=== PATIENT | male | born 1975 | race Caucasian/White ===

== ENCOUNTER 2016-06-13 14:06 | Emergency (ER) | payer OTHER ==
[~2016-06-13] VITALS: Ht 182.9 cm; Wt 68.0 kg
[~2016-06-13 14:06] MED LIST: AMOX875T PO; FLUT1SPR9 EACH NARE; RISP4TAB41 PO
[2016-06-13 14:22] VITALS: BP 128/80; PULSE 98; RESP 20; TEMP 98.2; O2SAT 96
[2016-06-13 14:42] LABS: AUTOMATED NEUTROPHIL # 7.6 TH/MM3 (1.8-7.7); BASOPHIL # 0.1 TH/MM3 (0-0.2); BASOPHIL % 0.8 % (0.0-2.0); EOSINOPHIL % 0.1 % (0.0-4.0); HEMATOCRIT 41.5 % (39.0-51.0); HEMO FLAGS DIFF FINAL; LYMPH % 19.6 % (9.0-44.0); MEAN CELL VOLUME 96.6 FL (80.0-100.0); MEAN CORPUSCULAR HEMOGLOBIN 33.7 PG (27.0-34.0); MEAN CORPUSCULAR HGB CONC 34.9 % (32.0-36.0); MONO % 4.9 % (0.0-8.0); NEUT % 74.6 % (16.0-70.0); PLATELET COUNT 228 TH/MM3 (150-450); RED CELL DISTRIBUTION WIDTH 13.3 % (11.6-17.2); WHITE BLOOD COUNT 10.2 TH/MM3 (4.0-11.0)
--- NOTE | 2016-06-13 14:48 | PD ---
HPI Chief Complaint: Psychiatric Symptoms Time Seen by Provider: 14:13 Travel History International Travel<30 days: No Contact w/Intl Traveler<30days: No Traveled to known affect area: No History of Present Illness HPI This patient is brought in as a police Patel act. This patient has history of schizoaffective disorder. He takes risperidone and reports compliance. He is also admittedly an alcohol abuser and drinks most days. He says he had one beer today. He called 911 and requested to be Patel acted. He says he is hearing voices and he wasn't sure what sort of acts he might commit. He denies feeling suicidal however. Symptoms severity is moderate. Duration 3 days. No alleviating factors. PFSH Past Medical History Hx Anticoagulant Therapy: No Bipolar Disorder: Yes (SCHIZOAFFECTIVE) Anxiety: Yes Depression: Yes Cardiovascular Problems: Yes (TACHYCARDIA) Chemotherapy: No Cerebrovascular Accident: No Diabetes: No Diminished Hearing: No Psychiatric: Yes (SCHIZOAFFECTIVE) Respiratory: No Seizures: Yes (2007 SECONDARY ALCOHOL WITHDRAWL) Past Surgical History Abdominal Surgery: Yes (HERNIA REPAIR) Social History Alcohol Use: Yes (CASE OF BEER DAILY) Tobacco Use: Yes (1 PPD) Substance Use: No Allergies-Medications (Allergen,Severity, Reaction): Coded Allergies: Bee Sting (Verified Allergy, Intermediate, HIVES, 12/01/15) Reported Meds & Prescriptions Reported Meds & Active Scripts Active Flonase Allergy Relief (Fluticasone Propionate (Nasal)) 50 Mcg/Act Spr 2 [place] EACH NARE DAILY Trimox 875 Mg Tab (Amoxicillin) 875 Mg Tab 875 Mg PO Q12 Reported Risperdal (Risperidone) 4 Mg Tab 4 Mg PO DAILY Review of Systems General / Constitutional: No: Fever Eyes: No: Visual changes HENT: No: Headaches Cardiovascular: No: Chest Pain or Discomfort Respiratory: No: Shortness of Breath Gastrointestinal: No: Abdominal Pain Genitourinary: No: Dysuria Musculoskeletal: No: Pain Skin: No Rash Neurologic: No: Weakness Psychiatric: Positive: Disorder of Thought, Substance Abuse, No: Depression Endocrine: No: Polydipsia Hematologic/Lymphatic: No: Easy Bruising Physical Exam Narrative GENERAL: Well-nourished, well-developed patient in no apparent distress. SKIN: Warm and dry. HEAD: Atraumatic. Normocephalic. EYES: Pupils equal and round. No scleral icterus. No injection or drainage. ENT: No nasal bleeding or discharge. Mucous membranes pink and moist. NECK: Trachea midline. No JVD. CARDIOVASCULAR: Regular rate and rhythm. No murmur appreciated. RESPIRATORY: No accessory muscle use. Clear to auscultation. Breath sounds equal bilaterally. GASTROINTESTINAL: Abdomen soft, non-tender, nondistended. Hepatic and splenic margins not palpable. MUSCULOSKELETAL: No obvious deformities. No clubbing. No cyanosis. No edema. NEUROLOGICAL: Awake and alert. No obvious cranial nerve deficits. Motor grossly within normal limits. Normal speech. PSYCHIATRIC: Appropriate mood and affect; insight and judgment reduced. Data Data Last Documented VS Vital Signs Date Time Temp Pulse Resp B/P Pulse Ox O2 Delivery O2 Flow Rate FiO2 06/13/16 14:24 98 20 06/13/16 14:22 98.2 128/80 96 Orders Complete Blood Count With Diff (06/13/16 14:18) Basic Metabolic Panel (Bmp) (06/13/16 14:18) Psych Screen (06/13/16 14:18) Drug Screen, Random Urine (06/13/16 14:18) Alcohol (Ethanol) (06/13/16 14:18) Labs Laboratory Tests Test 06/13/16 06/13/16 14:28 15:45 White Blood Count 10.2 TH/MM3 Red Blood Count 4.30 MIL/MM3 Hemoglobin 14.5 GM/DL Hematocrit 41.5 % Mean Corpuscular Volume 96.6 FL Mean Corpuscular Hemoglobin 33.7 PG Mean Corpuscular Hemoglobin 34.9 % Concent Red Cell Distribution Width 13.3 % Platelet Count 228 TH/MM3 Mean Platelet Volume 7.8 FL Neutrophils (%) (Auto) 74.6 % Lymphocytes (%) (Auto) 19.6 % Monocytes (%) (Auto) 4.9 % Eosinophils (%) (Auto) 0.1 % Basophils (%) (Auto) 0.8 % Neutrophils # (Auto) 7.6 TH/MM3 Lymphocytes # (Auto) 2.0 TH/MM3 Monocytes # (Auto) 0.5 TH/MM3 Eosinophils # (Auto) 0.0 TH/MM3 Basophils # (Auto) 0.1 TH/MM3 CBC Comment DIFF FINAL Differential Comment Sodium Level 138 MEQ/L Potassium Level 4.3 MEQ/L Chloride Level 102 MEQ/L Carbon Dioxide Level 22.8 MEQ/L Anion Gap 13 MEQ/L Blood Urea Nitrogen 8 MG/DL Creatinine 1.18 MG/DL Estimat Glomerular Filtration 68 ML/MIN Rate Random Glucose 74 MG/DL Calcium Level 9.1 MG/DL Ethyl Alcohol Level 28 MG/DL Urine Opiates Screen NEG Urine Barbiturates Screen NEG Urine Amphetamines Screen NEG Urine Benzodiazepines Screen NEG Urine Cocaine Screen NEG Urine Cannabinoids Screen NEG MDM Medical Decision Making Medical Screen Exam Complete: Yes Emergency Medical Condition: Yes Medical Record Reviewed: Yes Differential Diagnosis Schizoaffective exacerbation, bipolar, alcohol intoxication Narrative Course I have reviewed the patient's electronic medical record. Patient's been seen here multiple times for schizoaffective disorder CBC is normal Metabolic profile is normal Alcohol level is 28 Toxicology screen is negative Patient presents under Patel act and requests psychiatric evaluation. I've ordered psychiatric screening. Patient is is medically stable as can be made. Disposition will be per psychiatry after screening Diagnosis Primary Impression: Schizoaffective disorder Qualified Code: F25.9 - Schizoaffective disorder, unspecified type Additional Impressions: Alcoholism Auditory hallucination Holden Pride MD Jun 13, 2016 14:48
[2016-06-13 14:55] LABS: BICARBONATE 22.8 MEQ/L (21.0-32.0); POTASSIUM 4.3 MEQ/L (3.5-5.1)
[2016-06-13 16:01] LABS: AMPHETAMINE, URINE NEG (NEG); BARBITURATES, URINE NEG (NEG); COCAINE, URINE NEG (NEG)
[2016-06-13 22:11] VITALS: BP 113/79; PULSE 89; RESP 18; O2SAT 97
[2016-06-14 02:04] VITALS: BP 110/65; PULSE 66; RESP 18; O2SAT 95
[2016-06-14 06:29] VITALS: BP 91/55; PULSE 71; RESP 18; O2SAT 95
--- NOTE | 2016-06-14 10:13 | MB ---
cc: ELMER BOJORQUEZ DATE OF CONSULTATION: 06/14/2016 PHYSICIAN REQUESTING CONSULTATION Emergency Department REASON FOR CONSULTATION Patel Act. HISTORY OF PRESENT ILLNESS Mr. Jacobsen is a 40-year-old male with a reported history of schizoaffective disorder who presents under Patel Act from the [place] [employer] alleging "Mr. Jacobsen called 911 and wanting to be Patel Acted due to being schizophrenic and he is afraid he might do something." Reviewing the electronic medical record, I see no prior psychiatric contact within our system. Alcohol level on presentation here was 28. The patient is seen and examined. Chart reviewed. Case discussed with nurse in the [facility]. The patient has been no behavioral problem in the J-[facility] and there has been no evidence of any suicidality or homicidality while under observation in the J-[facility]. On my examination this morning, the patient is clinically sober. He is calm and pleasant and quite a knowledgeable historian about his mental illness. He says that he has a lengthy history of schizoaffective disorder, well-managed with Risperdal and he follows with the [facility]. He says that he also has an alcohol use history but had been sober for the last 4 months or so. He says that he had a slip up and drank a little bit last night and began to experience some vague hallucinations. He had described auditory hallucinations to the ED provider, but to me he describes more of what sounds like tactile hallucinations, feeling like someone was brushing up against him. In any event, the patient reports that this hallucinatory material has completely resolved this morning. He denies any audiovisual or tactile hallucinations at this time. No command auditory hallucinations. I can elicit no delusional beliefs. Mood is good and there is no evidence of any depressive or hypomanic / manic process. The remainder of the psychiatric ROS is negative. The patient is requesting discharge from the psychiatric emergency room this morning. PAST PSYCHIATRIC HISTORY The patient reports a history of schizoaffective disorder. He follows with a tele psychiatrist through the [place]. He takes Risperdal 4 mg daily. His most recent psychiatric hospitalization was in 2007 in [place] following an overdose after he went off of his Zyprexa at the time. That is his only suicide attempt. FAMILY HISTORY The patient denies a family history of serious mental illness. No reported family history of suicide. CHEMICAL DEPENDENCY HISTORY The patient reports that he used to be a heavy drinker but has been sober for the last 4 months. He does attend AA meetings. He had a slip up yesterday but is committed to resuming AA meetings and sobriety at this time. He denies any other substance use. SOCIAL HISTORY The patient reports that he lives alone in an apartment. He is hoping to get a pet cat. He is also looking forward to getting a new apartment because he says several of his neighbors are crack heads. He says that the [facility] is assisting him with this. He is college educated. He collects Disability and is also working on getting a VA pension. He has had girlfriends in the past but has never been . He has no children. He does have a history of DUIs but denies any other legal issues. Denies a history of violent crime. Denies any access to guns or firearms. Believes in a higher power. 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 He did see some combat but denies any PTSD symptoms. PAST MEDICAL HISTORY No reported medical issues. REVIEW OF SYSTEMS No reported headache, vision or hearing changes, chest pain, shortness of breath, bowel or bladder issues. No other physical complaints. MENTAL STATUS EXAMINATION The patient is in a hospital gown. He is fairly well-groomed and maintaining basic hygiene. He is awake, alert and oriented x3. No evidence of delirium. No abnormal motor movements noted. Speech is within normal limits for rate, tone and volume. Language and fund of knowledge seem average. Mood is good and affect is euthymic, full and reactive. Thought process is linear. No loosening of associations. No evident delusions. Denies audiovisual hallucinations at this time. Denies suicidal or homicidal ideation. Insight and judgment are fair to good. ASSESSMENT AND PLAN 1. Schizoaffective disorder, presently stable, F25.0. 2. Alcohol intoxication, F10.120, now resolved. This is a 40-year-old male with a psychiatric history as detailed above who presents under a Patel Act. The patient called the police to have himself Patel Acted because he was worried that he had slipped up and consumed alcohol and that this had reacted badly with his psychotropic medications. This morning, the patient is clinically sober and has returned to his psychiatric baseline. He denies any audiovisual hallucinations. Denies any suicidal or homicidal ideation. He appears to be attending to his basic needs. I can detect no other unstable mood, anxiety or psychotic disorder in this patient at this time. Synthesizing the above information, I drywaller the patient does not presently meet Patel Act criteria. I have lifted the Patel Act. The patient is requesting discharge from the emergency room today. He is agreeable to following up with his VA provider. He has an adequate supply of his Risperdal medication and plans to continue taking this. He plans to redouble his efforts with Alcoholics Anonymous to maintain sobriety from alcohol. I have counseled the patient regarding warning signs for need to return to the psychiatric emergency room as part of a general safety plan. The patient is otherwise psychiatrically cleared for discharge from the ED. Case discussed with RN. Thank you very much for this consultation. Elmer FERREIRA /8:26 AM /9:59 AM ABEL
== END 2016-06-14 09:29 | disposition home or self-care (01) ==
LOC: NEPE 14:06 → NEPJ 06-14 09:29
DX: F25.9 Schizoaffective disorder, unspecified (principal); R00.0 Tachycardia, unspecified; F10.20 Alcohol dependence, uncomplicated; F17.210 Nicotine dependence, cigarettes, uncomplicated; Y90.1 Blood alcohol level of 20-39 mg/100 ml
CPT/HCPCS: 80048; 80307; 85025; 99283

== ENCOUNTER 2017-08-05 16:27 | Emergency (ER) | payer OTHER ==
[~2017-08-05] VITALS: Ht 177.8 cm; Wt 75.0 kg
[~2017-08-05 16:27] MED LIST changes: -AMOX875T PO
[2017-08-05 16:32] VITALS: BP 133/91; PULSE 116; RESP 20; TEMP 98.1; O2SAT 95
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
[2017-08-05 17:01] LABS: AUTOMATED NEUTROPHIL # 4.3 TH/MM3 (1.8-7.7); BASOPHIL # 0.1 TH/MM3 (0-0.2); BASOPHIL % 1.1 % (0.0-2.0); EOSINOPHIL % 0.7 % (0.0-4.0); HEMOGLOBIN 14.5 GM/DL (13.0-17.0); LYMPH % 32.6 % (9.0-44.0); LYMPHOCYTE # 2.4 TH/MM3 (1.0-4.8); MEAN CELL VOLUME 97.3 FL (80.0-100.0); MEAN CORPUSCULAR HEMOGLOBIN 33.7 PG (27.0-34.0); MEAN CORPUSCULAR HGB CONC 34.6 % (32.0-36.0); MEAN PLATELET VOLUME 7.3 FL (7.0-11.0); MONO % 7.3 % (0.0-8.0); MONOCYTE # 0.5 TH/MM3 (0-0.9); NEUT % 58.3 % (16.0-70.0); PLATELET COUNT 230 TH/MM3 (150-450); RED BLOOD COUNT 4.32 MIL/MM3 (4.50-5.90); RED CELL DISTRIBUTION WIDTH 14.1 % (11.6-17.2); WHITE BLOOD COUNT 7.4 TH/MM3 (4.0-11.0)
[2017-08-05 17:32] LABS: AST (GOT) 40 U/L (15-37); BICARBONATE 27.9 MEQ/L (21.0-32.0); BLOOD UREA NITROGEN 6 MG/DL (7-18); CALCIUM 8.9 MG/DL (8.5-10.1); CHLORIDE 98 MEQ/L (98-107); CREATININE 0.91 MG/DL (0.60-1.30); GLOMERULAR FILTRATION RATE 92 ML/MIN (>89); GLUCOSE,RANDOM 107 MG/DL (74-106); SODIUM (NA) 136 MEQ/L (136-145)
[2017-08-05 17:33] LABS: ALT (GPT) 29 U/L (12-78)
[2017-08-05 17:42] LABS: ALKALINE PHOSPHATASE 109 U/L (45-117); TOTAL BILIRUBIN ADULT 0.2 MG/DL (0.2-1.0); TOTAL PROTEIN 8.7 GM/DL (6.4-8.2)
[2017-08-05] MEDS ORDERED: ONDANSETRON ODT 4 MG TAB PO PRN (18:00)
[2017-08-05] MEDS ORDERED: FLUMAZENIL 0.5 MG/5 ML VIAL IV PUSH PRN (18:00)
[2017-08-05] MEDS ORDERED: LORazepam 2 MG/ML VIAL IV PUSH PRN ×4 (18:00)
[2017-08-05] MEDS ORDERED: ACETAMINOPHEN 325 MG TAB PO PRN (18:00)
[2017-08-05] MEDS ORDERED: LORazepam 2 MG TAB PO PRN (18:00)
[2017-08-05] MEDS ORDERED: LORazepam 1 MG TAB PO PRN (18:00)
[2017-08-05 18:52] VITALS: BP 127/78; PULSE 94; RESP 20; TEMP 98.2; O2SAT 96
[2017-08-06 05:27] VITALS: BP 114/88; PULSE 102; RESP 18; O2SAT 95
[2017-08-06 07:38] VITALS: BP 133/82; PULSE 86; RESP 16; TEMP 98.7; O2SAT 95
--- NOTE | 2017-08-06 09:14 | PD ---
Physical Exam Date Seen by Provider: August 06, 2017 Time Seen by Provider: 09:13 Narrative 41-year-old male previously Patel acted and medically cleared for psychiatric evaluation, has been seen by the psychiatrist and deemed to be psychiatrically stable for discharge at this time. Patient remains medically stable for discharge. Follow-up will be based on psychiatric note. Data Data Last Documented VS Vital Signs Date Time Temp Pulse Resp B/P (MAP) Pulse Ox O2 Delivery O2 Flow Rate FiO2 08/06/17 07:38 98.7 86 16 133/82 (99) 95 Room Air Orders Orders Complete Blood Count With Diff (08/05/17 16:36) Comprehensive Metabolic Panel (08/05/17 16:36) Thyroid Stimulating Hormone (08/05/17 16:36) Psych Screen (08/05/17 16:36) Drug Screen, Random Urine (08/05/17 16:36) Alcohol (Ethanol) (08/05/17 16:36) Diet Regular Basic (08/05/17 Dinner) Alcohol Withdrawal Asmt-Ciwa ONCE (08/05/17 17:51) Ondansetron Odt (Zofran Odt) (08/05/17 18:00) Acetaminophen (Tylenol) (08/05/17 18:00) Flumazenil Inj (Romazicon Inj) (08/05/17 18:00) Lorazepam (Ativan) (08/05/17 18:00) Lorazepam Inj (Ativan Inj) (08/05/17 18:00) Lorazepam (Ativan) (08/05/17 18:00) Lorazepam Inj (Ativan Inj) (08/05/17 18:00) Lorazepam Inj (Ativan Inj) (08/05/17 18:00) Lorazepam Inj (Ativan Inj) (08/05/17 18:00) Diet Regular Basic (08/06/17 Breakfast) Labs Laboratory Tests Test 08/05/17 16:41 08/06/17 08:20 White Blood Count 7.4 TH/MM3 Red Blood Count 4.32 MIL/MM3 Hemoglobin 14.5 GM/DL Hematocrit 42.0 % Mean Corpuscular Volume 97.3 FL Mean Corpuscular Hemoglobin 33.7 PG Mean Corpuscular Hemoglobin Concent 34.6 % Red Cell Distribution Width 14.1 % Platelet Count 230 TH/MM3 Mean Platelet Volume 7.3 FL Neutrophils (%) (Auto) 58.3 % Lymphocytes (%) (Auto) 32.6 % Monocytes (%) (Auto) 7.3 % Eosinophils (%) (Auto) 0.7 % Basophils (%) (Auto) 1.1 % Neutrophils # (Auto) 4.3 TH/MM3 Lymphocytes # (Auto) 2.4 TH/MM3 Monocytes # (Auto) 0.5 TH/MM3 Eosinophils # (Auto) 0.0 TH/MM3 Basophils # (Auto) 0.1 TH/MM3 CBC Comment DIFF FINAL Differential Comment Blood Urea Nitrogen 6 MG/DL Creatinine 0.91 MG/DL Random Glucose 107 MG/DL Total Protein 8.7 GM/DL Albumin 4.0 GM/DL Calcium Level 8.9 MG/DL Alkaline Phosphatase 109 U/L Aspartate Amino Transf (AST/SGOT) 40 U/L Alanine Aminotransferase (ALT/SGPT) 29 U/L Total Bilirubin 0.2 MG/DL Sodium Level 136 MEQ/L Potassium Level 3.7 MEQ/L Chloride Level 98 MEQ/L Carbon Dioxide Level 27.9 MEQ/L Anion Gap 10 MEQ/L Estimat Glomerular Filtration Rate 92 ML/MIN Thyroid Stimulating Hormone 3rd Gen 4.220 uIU/ML Ethyl Alcohol Level 250 MG/DL Urine Opiates Screen NEG Urine Barbiturates Screen NEG Urine Amphetamines Screen NEG Urine Benzodiazepines Screen NEG Urine Cocaine Screen NEG Urine Cannabinoids Screen NEG MDM Medical Record Reviewed: Yes Supervised Visit with VICTORINO: Yes Narrative Course 41-year-old male previously Patel acted and medically cleared for psychiatric evaluation, has been seen by the psychiatrist and deemed to be psychiatrically stable for discharge at this time. Patient remains medically stable for discharge. Follow-up will be based on psychiatric note. Diagnosis Primary Impression: Alcoholism Additional Impression: Medical clearance for psychiatric admission Referrals: [facility] Patient Instructions: General Instructions Disposition: DISCHARGE HOME Condition: Stable Brent Aguilar August 06, 2017 09:14
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
== END 2017-08-06 10:29 | disposition home or self-care (01) ==
LOC: NEPJ 16:27
DX: F25.9 Schizoaffective disorder, unspecified (principal); F10.229 Alcohol dependence with intoxication, unspecified; F17.200 Nicotine dependence, unspecified, uncomplicated; Y90.8 Blood alcohol level of 240 mg/100 ml or more; Z79.899 Other long term (current) drug therapy
CPT/HCPCS: 80053; 80307; 84443; 85025; 99283

== ENCOUNTER 2018-05-08 15:54 | Inpatient (IN) ==
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
--- NOTE | 2018-05-08 18:57 | ED ---
HPI - Psych - General Source: patient, old records reviewed, police Mode of arrival: other (police) Limitations: no limitations - History of Present Illness Onset (ago): hour(s) Duration: changing over time History of same: Yes Relieving factors: none Exacerbating factors: alcohol Context: significant life stressor Associated symptoms: denies other symptoms Treatments prior to arrival: none - General Chief Complaint: Psychiatric Symptoms Stated Complaint: nolan Sheth Time Seen by Provider: 05/08/18 16:35 - History of Present Illness HPI Narrative: This patient is a 42 years old [facility] [employer] male who was brought into the ED on a Patel act initiated by a psychologist at the [facility]. The Patel act stated that the patient had been abusing alcohol heavily and experiencing hallucinations. The patient came into the unit became very anxious and is faced flushed and heavily tanned by the sun. The staff stated that patient was living in a supervised housing for veterans and he had been missing for 2 weeks. The patient is alert and orientated x3 and he gave a report of him arguing with his case briefer at the [place] clinic and that is what caused him to be Patel acted. His speech is fluent rational with no evidence of thought process disorder. Patient denies any auditory hallucinations or suicidal thoughts. Initially he appears anxious but settled down soon after on his own. The patient was last treated at this hospital in July 2017. He has a diagnosis of schizoaffective disorder and alcohol dependence. He denies any abuse of illicit drugs but confessed to be drinking alcohol daily. Evidence of alcohol withdrawal symptoms are seen and patient denies the same. He denies chest pain or any other somatic symptoms. (Saurabh Rubi) - Related Data Home Medications Medication Instructions Recorded Confirmed Risperdal 4 mg PO DAILY 05/06/18 05/08/18 Allergies Allergy/AdvReac Type Severity Reaction Status Date / Time olanzapine Allergy Severe Restlessnes Unverified 05/08/18 16:12 s bee venom protein (honey bee) Allergy Intermediate HIVES Unverified 05/08/18 16: 12 PMFSH - History History Provided By: Patient - Medical History Medical History: Medical History (Last Reviewed 05/08/18 @ 17:13 by BERNICE Merritt) Schizoaffective disorder - Surgical History Surgical History: Surgical History (Last Reviewed 05/08/18 @ 17:13 by BERNICE Merritt) History of hernia surgery - Tobacco History Second Hand Smoke Exposure: Yes Tobacco Use In Past 30 Days: Yes Smoking Status: Current every day smoker Tobacco Type: Cigarettes - Alcohol History How Often Do You Have a Drink Containing Alcohol: 2 to 3 times a week - Substance Use History Substance History: Active Abuse - Substance Use Type Alcohol Status: Active - Travel History Recent Travel in the [place] Within the Last 8 Weeks: No Recent Travel Out of the Country Within the Last 8 Weeks: No - Immunization History Tetanus Immunization: Unsure Psychiatric History - Psychiatric History Psychiatric Treatment History: History of Psychiatric Treatment History of Inpatient Treatment: Yes Firearms in Home: No - Psychiatric History Patient has a long history of chronic alcohol dependency and schizoaffective disorder. Pain to have been treated at the [place] outpatient clinic and he was last treated at this hospital in July 2017. (Saurabh Rubi) - Legal History Denies (Saurabh Rubi) - Family Psychiatric History Denies any family history of mental disorder (Saurabh Rubi) Physical Exam - General Limitations: no limitations Mental Status Examination Appearance: Appropriate Consciousness: Alert Orientation: x4 Motor Activity: Normal gait Speech: Unremarkable Language: Adequate Fund of Knowledge: Adequate Attention and Concentration: Easily distracted Memory: Unremarkable Mood: Appropriate, Anxious Affect: Appropriate, Euthymic, Anxious Thought Process & Associations: Intact, Logical, Goal directed Thought Content: Appropriate Hallucination Type: None Delusion Type: None Suicidal Ideation: No Suicidal Plan: No Suicidal Intention: No Homicidal Ideation: No Homicidal Plan: No Homicidal Intention: No Insight: Adequate Judgment: Adequate Initial Documented Vital Signs Temperature 98.9 F 05/08/18 16:10 Pulse Rate 99 H 05/08/18 16:10 Respiratory Rate 18 05/08/18 16:10 Blood Pressure 126/96 H 05/08/18 16:10 Pulse Oximetry 99 05/08/18 16:10 Last Documented Vital Signs Temperature 98.3 F 05/08/18 18:41 Pulse Rate 93 H 05/08/18 18:41 Respiratory Rate 16 05/08/18 18:41 Blood Pressure 123/85 05/08/18 18:41 Pulse Oximetry 98 05/08/18 18:41 MDM - Psych - Diagnosis (1) Schizoaffective disorder Code(s): F25.9 - Schizoaffective disorder, unspecified Status: Acute (2) Alcohol dependence Code(s): F10.20 - Alcohol dependence, uncomplicated Status: Acute - MDM Narrative Medical decision making narrative: This [employer] has a history of chronic alcohol dependency and poor compliance with treatment. His case briefer at the [place] is trying to get him placed into the [facility] psychiatric unit when he is discharged from this hospital. The plan is to admit the patient to the [facility] unit for inpatient stabilization then to facilitate a transfer to the [facility]. ( Saurabh Rubi)
[2018-05-08] MEDS ORDERED: Aluminum/Magnesium/Simethacone Susp 30 ML UDC PO PRN (19:00)
[2018-05-08] MEDS ORDERED: LORazepam 1 MG Tablet PO PRN (19:04)
--- NOTE | 2018-05-09 16:11 | P.HPPSY ---
Provisional Diagnosis Admission Date: May 08, 2018 19:10 [place] I.: schizoaffective disorder, bipolar type alcohol abuse Competence Certification of Person's Competence To Provide Express and Informed Consent I have personally examined Romeo Jacobsen, a person being served at [facility] on, May 09, 2018 1608. Express and informed consent means consent voluntarily given in writing, by a competent person, after sufficient explanation and disclosure of the subject matter involved to enable the person to make a knowing and willful decision without any element of force, fraud, deceit, duress, or other form of constraint or coercion. This person is 18 years of age or older, is not now known to be incompetent to consent to treatment with a guardian advocate, and does not have a health care surrogate or proxy currently making medical treatment decisions. I have found this person to be one of the following: [] Competent to provide express and informed consent, as defined above, for voluntary admission to this facility and is competent to provide express and informed consent for treatment. He/she has the consistent capacity to make well reasoned, willful, and knowing decisions concerning his or her medical or mental health treatment. The person fully and consistently understands the purpose of the admission for examination/placement and is fully capable of personally exercising all rights assured [place] [] Incompetent to provide express and informed consent to voluntary admission, and this is incompetent to provide express and informed consent to treatment. The person must be transferred to involuntary status and a petition for a guardian advocate filed with the Circuit Court. [] Refusing to provide express and informed consent to voluntary admission but is competent to provide express and informed consent for treatment. The person must be discharged or transferred to involuntary status. Form shall be completed within 24 hours of a person's arrival at the receiving facility and filed in the clinical record of each person: 1. Admitted on a voluntary basis 2. Permitted to provide express and informed consent to his/her own treatment 3. Allowed to transfer from involuntary to voluntary status 4. Prior to permitting a person to consent to his or her own treatment after having been previously found incompetent to consent to treatment. History of Present Illness Capacity: Has capacity Chief Complaint: "the social workers are ruining my life" History of Present Illness: Pt seen and discussed with staff. Chart reviewed. Pt is a [id number] with a hx of schizoaffective d/o bipolar type who was admitted to [facility] on a BA after he went to [place] and c/o of bugs crawling on him and allegedly became agitated. He was missing from [place] housing for two weeks and heavily abusing alcohol. He states he left apartment because there are crackheads in the neighborhood and he has been hanging out with homeless people drinking beer. He believes [place] SW are conspiring against him and has been paranoid and labile on he unit. Speech is pressured and TP is disorganized and tangential. CIWA has been 0 and vital signs are stable. Pt reports that he stopped taking risperdal 4mg po Qdaily 4 months ago to see what would happen. He reports that previous attempts at ceasing risperdal have resulted in him becoming psychotic within a month. 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 Pt states that he has been drinking b/c he likes it and "just because I yelled a bit" the SW had him placed under a BA. He is quite grandiose and tangential. He denies any hx of side effects or EPS with Risperdal. He states that he is agreeable to take medication and wishes to have substance abuse treatment. "Its time I stop drinking." No SI/HI. He is easily agitated but calms with verbal intervention. He is on CIWA for alcohol abuse and has been scoring zero so far. He denies any hx of previous DTs or withdrawal. - Inpatient Certification I certify that the inpatient services were ordered in accordance with Medicare regulations governing the order. This includes certification that hospital inpatient services are reasonable and necessary and in the case of services not specified as inpatient-only under 42 CFR 419.22(n), that they are appropriately provided as inpatient services in accordance to with the 2-midnight benchmark under 43 CFR 412.3(e) I certify that inpatient psychiatric hospital services are medically necessary. Evaluation and treatment and/or diagnostic testing are expected to improve the patient's condition. The patient needs on a daily basis, active treatment furnished directly by or requiring the supervision of inpatient psychiatric facility personnel. Estimated Total Length of Stay (Days): 7 Plans for Post Hospital Care: Home Review of Systems Psychiatric: Reports abnormal sleep pattern, Reports mood swings, Reports paranoia PMFSH - History History Provided By: Patient - Medical History Medical History: Medical History (Last Reviewed 05/09/18 @ 19:10 by Daiana Ruiz MD) Schizoaffective disorder - Surgical History Surgical History: Surgical History (Last Reviewed 05/09/18 @ 19:10 by Daiana Ruiz MD) History of hernia surgery - Family History Family History: Family History (Last Updated 05/09/18 @ 19:11 by Daiana Ruiz MD) Other No pertinent family history - Tobacco History Second Hand Smoke Exposure: Yes Tobacco Use In Past 30 Days: Yes Smoking Status: Current every day smoker Tobacco Type: Cigarettes - Alcohol History How Often Do You Have a Drink Containing Alcohol: 2 to 3 times a week - Substance Use History Substance History: Active Abuse - Substance Use Type Alcohol Status: Active Route Used: By Mouth Reason for Use: Calm Down - Travel History Recent Travel in the [place] Within the Last 8 Weeks: No Recent Travel Out of the Country Within the Last 8 Weeks: No - Immunization History Tetanus Immunization: Unsure Hx Influenza Vaccine This Season: No Quality Measures - Psychiatric History Psychological trauma history: reports experienced trauma in Violence risk to others in the last 6 months: denies Violence risk to self in the last 6 months: denies - Substance Abuse History Drug or alcohol use in the past 12 months: Pt reports heavy drinking of beer for past 2 weeks. Hx of DUIs and incarceration for felony DUI - Patient Strengths Patient's strengths (minimum of 2): verbal, has access to healthcare, wants substance abuse treatment Medications and Allergies Active Medications: Active Medications Al Hydrox/Mg Hydrox/Simethicone (Mag-Al Plus Susp Liq) 30 ml PO Q6H PRN PRN Reason: DYSPEPSIA Lorazepam (Ativan) 1 mg PO Q4H PRN PRN Reason: for CIWA 8-10 Lorazepam (Ativan) 2 mg PO Q2H PRN PRN Reason: for CIWA 11-14 Allergies Allergy/AdvReac Type Severity Reaction Status Date / Time olanzapine Allergy Severe Restlessnes Unverified 05/08/18 16:12 s bee venom protein (honey bee) Allergy Intermediate HIVES Unverified 05/08/18 16: 12 Home Medications Medication Instructions Recorded Confirmed Type Risperdal 4 mg PO DAILY 05/06/18 05/08/18 History Exam Vital signs: Vital Signs 05/08/18 16:10 05/08/18 18:41 05/08/18 20:20 Temperature 98.9 F 98.3 F 98.0 F Pulse Rate 99 H 93 H 90 Respiratory Rate 18 16 20 Blood Pressure 126/96 H 123/85 116/77 Pulse Oximetry 99 98 95 05/09/18 05:59 Temperature 98.1 F Pulse Rate 75 Respiratory Rate 18 Blood Pressure 102/66 Pulse Oximetry 95 Intake & Output 05/08/18 05/09/18 05/09/18 18:59 06:59 18:59 Weight 64.864 kg 63.1 kg Other: Weight On Admission 63.1 kg Mental Status Examination Appearance: Appropriate Consciousness: Alert Orientation: x4 Motor Activity: Normal gait Speech: Pressured Language: Adequate Fund of Knowledge: Adequate Attention and Concentration: Easily distracted Memory: Unremarkable Mood: Manic Affect: Labile Thought Process & Associations: Tangential Thought Content: Other (grandiose) Hallucination Type: None Delusion Type: Paranoid, Other (grandiose) Suicidal Ideation: No Suicidal Plan: No Suicidal Intention: No Homicidal Ideation: No Homicidal Plan: No Homicidal Intention: No Insight: Fair Judgment: Impulsive Assessment and Plan - Assessment (1) Schizoaffective disorder Code(s): F25.9 - Schizoaffective disorder, unspecified Status: Acute (2) Alcohol abuse, uncomplicated Code(s): F10.10 - Alcohol abuse, uncomplicated Status: Acute - Plan Plan: Estimated LOS: [] days Restart risperdal for psychosis and pattie. Pt has capacity and is agreeable to take medications but not willing to sign in voluntarily. Will start petition for involuntary hospitalization. Continue CIWA. Pt would benefit from substance abuse treatment. Justification for Continued Inpatient Stay: psychosis (1) Schizoaffective disorder Qualifiers: Schizoaffective disorder type: bipolar Qualified Code(s): F25.0 - Schizoaffective disorder, bipolar type
--- NOTE | 2018-05-10 14:40 | P.PNPSY ---
Subjective Chief Complaint: "the social workers are ruining my life" Remarks: Patient seen for follow-up, chart reviewed, patient discussed with nursing staff ; we reviewed the patient's mood, thoughts, and behaviors from overnight and this morning. Nurse reports the patient slept 8 hours overnight and his CIWA score was 1 this morning. He is described as calm cooperative but can be easily frustrated but responds well to redirection. Patient was seen at bedside where he was sleeping after breakfast. He was easy to awaken. His thought processes were significant for tangential thoughts and some grandiose descriptions of his abilities. He reports good control of his mood and behavior in the past with Risperdal 4 mg a day and he would like to continue titrating the dose. He denies any current auditory or visual hallucinations. Denies any suicidal or homicidal ideations. Mental Status Examination Appearance: Appropriate Consciousness: Alert Orientation: x4 Motor Activity: Normal gait Speech: Pressured Language: Adequate Fund of Knowledge: Adequate Attention and Concentration: Easily distracted Memory: Unremarkable Mood: Manic Affect: Labile Thought Process & Associations: Tangential Thought Content: Other (grandiose) Hallucination Type: None Delusion Type: Paranoid, Other (grandiose) Suicidal Ideation: No Suicidal Plan: No Suicidal Intention: No Homicidal Ideation: No Homicidal Plan: No Homicidal Intention: No Insight: Fair Judgment: Impulsive Assessment and Plan - Assessment (1) Schizoaffective disorder Code(s): F25.9 - Schizoaffective disorder, unspecified Status: Acute (2) Alcohol abuse, uncomplicated Code(s): F10.10 - Alcohol abuse, uncomplicated Status: Acute - Plan Plan: May 10, 2018: Good response to treatment as the patient is not having any symptoms of alcohol withdrawal and he is calm and cooperative with care. He continues to demonstrate a disorganized thought processes consistent with a bipolar disorder which he believes was very well controlled with Risperdal 4 mg/ day therefore dose will be increased to 1.5 mg twice a day for tomorrow. Justification for Continued Inpatient Stay: Patient remains an elevated risk for self-harm by self neglect and will require further inpatient stabilization and preparation of a safe discharge plan. Moving patient to a less restrictive environment at this time may result in decompensation. (1) Schizoaffective disorder Qualifiers: Schizoaffective disorder type: bipolar Qualified Code(s): F25.0 - Schizoaffective disorder, bipolar type
[2018-05-11 05:56] VITALS: O2SAT 97
--- NOTE | 2018-05-11 08:48 | P.CONPSY ---
Provisional Diagnosis Admission Date: May 08, 2018 19:10 [place] I.: schizoaffective disorder, bipolar type alcohol abuse History of Present Illness Service: [facility] Primary Care Provider: UNKNOWN History of Present Illness: HPI as noted: Patient remains manic disorganized and unable to comprehend simple question of voluntary versus involuntary. Agree with first opinion second opinion agrees patient is unable at this time to understand his need for treatment. Review of Systems Review of Systems ROS complaints: Skin pimple with purulent material. Left side of his face near his lip. PMFSH - History History Provided By: Patient - Medical History Medical History: Medical History (Last Reviewed 05/09/18 @ 19:10 by Daiana Ruiz MD) Schizoaffective disorder - Surgical History Surgical History: Surgical History (Last Reviewed 05/09/18 @ 19:10 by Daiana Ruiz MD) History of hernia surgery - Family History Family History: Family History (Last Updated 05/09/18 @ 19:11 by Daiana Ruiz MD) Other No pertinent family history - Tobacco History Second Hand Smoke Exposure: Yes Tobacco Use In Past 30 Days: Yes Smoking Status: Current every day smoker Tobacco Type: Cigarettes - Alcohol History How Often Do You Have a Drink Containing Alcohol: 2 to 3 times a week - Substance Use History Substance History: Active Abuse - Substance Use Type Alcohol Status: Active Route Used: By Mouth Reason for Use: Calm Down - Travel History Recent Travel in the [place] Within the Last 8 Weeks: No Recent Travel Out of the Country Within the Last 8 Weeks: No - Immunization History Tetanus Immunization: Unsure Hx Influenza Vaccine This Season: No Medications and Allergies Active Medications: Active Medications Al Hydrox/Mg Hydrox/Simethicone (Mag-Al Plus Susp Liq) 30 ml PO Q6H PRN PRN Reason: DYSPEPSIA Lorazepam (Ativan) 1 mg PO Q4H PRN PRN Reason: for CIWA 8-10 Lorazepam (Ativan) 2 mg PO Q2H PRN PRN Reason: for CIWA 11-14 Miscellaneous (Pill Splitter) 1 each OTHER UNSCH PRN PRN Reason: PRN Risperidone (Risperdal M-Tab) 2 mg PO BID TUNG Allergies Allergy/AdvReac Type Severity Reaction Status Date / Time olanzapine Allergy Severe Restlessnes Verified 05/09/18 20:35 s bee venom protein (honey bee) Allergy Intermediate HIVES Verified 05/09/18 20:35 Home Medications Medication Instructions Recorded Confirmed Type risperidone [Risperdal] 4 mg PO DAILY 05/09/18 05/09/18 History Exam Vital signs: Vital Signs 05/10/18 17:51 05/11/18 05:55 Temperature 97.9 F 98.0 F Pulse Rate 74 89 Respiratory Rate 17 17 Blood Pressure 124/84 114/69 Pulse Oximetry 98 97 Mental Status Examination Appearance: Appropriate Consciousness: Alert Orientation: x4 Motor Activity: Normal gait Speech: Pressured Language: Adequate Fund of Knowledge: Adequate Attention and Concentration: Easily distracted Memory: Unremarkable Mood: Manic Affect: Labile Thought Process & Associations: Tangential Thought Content: Other (grandiose) Hallucination Type: None Delusion Type: Paranoid, Other (grandiose) Suicidal Ideation: No Suicidal Plan: No Suicidal Intention: No Homicidal Ideation: No Homicidal Plan: No Homicidal Intention: No Insight: Fair Judgment: Impulsive Assessment and Plan - Assessment (1) Schizoaffective disorder Code(s): F25.9 - Schizoaffective disorder, unspecified Status: Acute (2) Alcohol abuse, uncomplicated Code(s): F10.10 - Alcohol abuse, uncomplicated Status: Acute - Plan Plan: May 10, 2018: Good response to treatment as the patient is not having any symptoms of alcohol withdrawal and he is calm and cooperative with care. He continues to demonstrate a disorganized thought processes consistent with a bipolar disorder which he believes was very well controlled with Risperdal 4 mg/ day therefore dose will be increased to 1.5 mg twice a day for tomorrow. May 11, 2018 Patient is making some progress but remains manic. He is experience best results with a dosage of 2 mg twice daily. Risperdal increased to 2 mg twice daily Justification for Continued Inpatient Stay: Patient remains at risk for deterioration and possible decompensation at a lower level of care. Needs further treatment prior to discharge. (1) Schizoaffective disorder Qualifiers: Schizoaffective disorder type: bipolar Qualified Code(s): F25.0 - Schizoaffective disorder, bipolar type
[2018-05-11] MEDS: risperiDONE 2 MG ODT PO SCH ×2 (10:10→21:44)
[2018-05-11 17:52] VITALS: RESP 16
[2018-05-12 05:44] VITALS: BP 122/65; PULSE 76; TEMP 98.7
[2018-05-12] MEDS: risperiDONE 2 MG ODT PO SCH (08:17)
== END 2018-05-12 10:40 | disposition home or self-care (01) | DRG 885 ==
LOC: NEPJ 15:54 → NEDA 19:10 → H270 19:39 → H260 05-10 12:05
PROVIDERS: ADMIT Psychiatry & Neurology Child & Adolescent Psychiatry; ATTEND Psychiatry & Neurology Child & Adolescent Psychiatry
CPT/HCPCS: Q0163